=== PATIENT | male | born 1960 | race Caucasian/White ===

== ENCOUNTER 2016-08-02 13:49 | Outpatient (CLI) | payer MEDICARE, MEDICAID ==
[~2016-08-02] VITALS: Ht 170.2 cm; Wt 114.1 kg
[~2016-08-02 13:49] MED LIST: ACCUPRIL5 MG PO; ACCUPRIL5MGTAB PO; ALBUTEROL SULFAT3 M3 IH; AMOXICILLIN 50500 MG PO; AMOXICILLIN 8751 TAB PO; ASPIRIN E.C. 8181 MG PO; ATARAX 10MG10 MG/TAB PO; ATARAX 25MG25 MG/TAB PO; BACTROBAN 22GM22 GM TP; CARAFATE 1GM1 G PO; CELEXA; CELEXA 20MG20 MG/TAB PO; CELEXA40 MG PO; CEPHALEXIN500 M1; CEPHALEXIN500 M1 PO; CILOXAN 5 ML5 ML OP; CIPRO 500MG TA500 MG PO; CLEOCIN HC150 MG/CAP PO; CLEOCIN HCL300 MG PO; COGENTIN .0.5 MG/TAB PO; DAZIDOX10 MG PO; DAZIDOX20 MG PO; DEMADEX 20MG20 M1 PO; DESYREL 50MG50 MG PO; DIFLUCAN PO; DILAUDID 4MG TAB4 MG; DILAUDID 4MG TAB4 MG PO; DOXYCYCLINE 10100 MG PO; DUREZOL 5 ML5 ML; ENULOSE10 GM/15 M PO; ENULOSE10 GM/151 PO; FERROUS SU325 MG/TAB PO; GABAPENTIN; GABAPENTIN100 M1 PO; GLUCOPHAGE1000 MG PO; HUMULIN R U-500 U/ML IJ; HUMULIN R U-500 U/ML SC; HUMULIN R100 U/ML IJ; HUMULIN U; INDERAL 20MG20 MG PO; INSLANT SQ; INSULIN; JANUVIA50 MG PO; LANTUS100 U/ML; LASIX 40MG TABL40 MG PO; LASIX 80MG TABL80 MG PO; LASIX40 MG PO; LEVAQUIN 5500 MG/TA1 PO; LEVEMIR SQ; LEXAPRO 5MG5 MG PO; LIPITOR 10MG10 MG PO; LIPITOR 80MG80 MG PO; LORTAB 5/500 501 TAB PO; LORTAB 7.5/5001 TAB PO; MAXITROL OPHTH3.5 GM OP; METFORMIN HCL PO; METROGEL TP; MONODOX100 PO; MS CONTIN30 MG PO; NAVANE; NAVANE PO; NAVANE5 MG PO; NEPHROCAP PO; NEURONTIN100 MG/CAP PO; NEXIUM 40MG40 MG PO; NORCO; NORCO 325 MG-101 TAB PO; NORCO 325 MG-51 TAB PO; NORCO 325 MG-7.1 TAB PO; NORVASC 10MG10 MG PO; NOVLOG SQ; PEPCID 20MG TAB20 MG PO; PEPCID40 MG PO; PERCOCET 325 MG1 TAB PO; POLYMYXIN B/TRIMETH OS; PREDFORTE15ML OS; PREDFORTE5ML OS; PREDNISONE20 MG PO; PRINIVIL2.5 MG PO; PROAIR HFA0.09 MG/AC IH; REMERON 15M15 MG/TA1 PO; ROXICODONE30 MG PO; SEPTRA DS 8001 TAB PO; SYNTHROID0.075 MG/T PO; TRAZADONE HYDR100 MG PO; VELTASSA8.4 GM PO; VICODIN 5/5001 UDTAB PO; VITAMIN D31000 IU PO; XANAX2 MG PO; XIFAXAN550 MG PO; ZESTRIL 20MG TA20 MG PO; ZITHROMAX 250M250 MG PO; ZITHROMAX TRI-500 MG PO; [UNRECOGNIZED DRUG - OTHER] PO; [UNRECOGNIZED DRUG - REMARK]; [UNRECOGNIZED DRUG - SUPPLY]; cholestyramine PO; lantus; water pill
[2016-08-02 14:15] VITALS: BP 182/80; PULSE 69
[2016-08-02 16:22] VITALS: BP 161/58; PULSE 66; TEMP 98.1
[2016-11-22] MEDS ORDERED: DEMADEX 20MG20 M1 PO (09:11)
[2016-12-16] MEDS ORDERED: MASON NATURAL2000 IU (06:49)
[2017-03-05] MEDS ORDERED: DILAUDID 4MG TAB4 MG PO (11:39)
== END 2016-08-02 17:35 | disposition home or self-care (01) ==
LOC: COL.RAD 13:49
DX: R18.8 Other ascites (principal); N18.9 Chronic kidney disease, unspecified; Z45.2 Encounter for adjustment and management of vascular access device
CPT/HCPCS: J1644; P9047

== ENCOUNTER 2016-08-07 17:27 | Inpatient (IN) | payer MEDICARE, MEDICAID ==
[~2016-08-07] VITALS: Ht 170.2 cm; Wt 113.9 kg
[2016-08-07 18:34] LABS: ADJUSTED CALCIUM 9.3 mg/dL (8.4-10.2); ALBUMIN 3.1 gm/dL (3.5-5.0); BASO # 0.1 (0.0-0.2); BASO % 0.5 % (0.0-2.0); BILIRUBIN,TOTAL 0.6 mg/dL (0.0-1.0); CALCIUM 8.6 mg/dL (8.4-10.2); CREATININE, serum 2.87 mg/dL (0.66-1.25); EOS # 0.2 (0.0-0.7); EOS % 1.7 % (0-4.0); GRAN # 5.4 (1.4-6.5); GRAN % 55.1 % (42.2-75.2); LYMPH # 3.3 (1.2-3.4); LYMPH % 33.5 % (20.0-51.0); MEAN CELL VOLUME 92 fl (80.0-100.0); MEAN CORPUSCULAR HGB CONC 32 g/dl (33.0-37.0); MONO # 0.9 (0.1-0.6); MONO % 8.7 % (1.7-9.3); PLATELET COUNT 100 K/mm3 (130-400); POTASSIUM 3.6 mmol/L (3.4-5.0); RED BLOOD COUNT 3.55 M/mm3 (4.20-5.60); REDCELL DISTRIBUTION WIDTH-CV 13.8 % (11.5-14.5); TOTAL PROTEIN 6.5 gm/dL (6.4-8.2); WHITE BLOOD COUNT 9.8 K/mm3 (4.8-10.8)
[2016-08-07 18:38] LABS: HEMATOCRIT 32.8 % (42.0-52.0); HEMOGLOBIN 10.5 g/dl (13.5-18.0); MEAN CORPUSCULAR HEMOGLOBIN 30 pg (27.0-31.0)
[2016-08-07 19:09] LABS: C-REACTIVE PROTEIN 3.5 mg/dL (0.0-0.9)
[2016-08-07 21:27] VITALS: BP 151/45; PULSE 69; TEMP 97.9
[2016-08-07 23:40] VITALS: BP 134/51; PULSE 66; TEMP 98.1
[2016-08-08 03:48] VITALS: BP 153/59; PULSE 66; TEMP 97.9
[2016-08-08 06:51] LABS: BASO % 0.5 % (0.0-2.0); EOS # 0.1 (0.0-0.7); GRAN % 65.1 % (42.2-75.2); LYMPH # 1.5 (1.2-3.4); LYMPH % 24.2 % (20.0-51.0); MEAN CELL VOLUME 92 fl (80.0-100.0); MEAN CORPUSCULAR HGB CONC 33 g/dl (33.0-37.0); MEAN PLATELET VOLUME 12.8 fl (7.4-10.4); MONO # 0.5 (0.1-0.6); MONO % 7.9 % (1.7-9.3); PLATELET COUNT 76 K/mm3 (130-400); RED BLOOD COUNT 3.46 M/mm3 (4.20-5.60); REDCELL DISTRIBUTION WIDTH-CV 13.5 % (11.5-14.5); WHITE BLOOD COUNT 6.1 K/mm3 (4.8-10.8)
[2016-08-08 06:54] LABS: HEMATOCRIT 31.8 % (42.0-52.0); HEMOGLOBIN 10.4 g/dl (13.5-18.0); MEAN CORPUSCULAR HEMOGLOBIN 30 pg (27.0-31.0)
[2016-08-08 07:06] LABS: ADJUSTED CALCIUM 9.6 mg/dL (8.4-10.2); ALBUMIN 2.8 gm/dL (3.5-5.0); BILIRUBIN,TOTAL 0.4 mg/dL (0.0-1.0); CALCIUM 8.6 mg/dL (8.4-10.2); CREATININE, serum 3.21 mg/dL (0.66-1.25)
[2016-08-08 07:25] VITALS: BP 149/67; PULSE 63; TEMP 98.1
[2016-08-08 15:45] VITALS: BP 176/90; PULSE 108; TEMP 98.2
[2016-08-08 16:38] LABS: PERITONEAL -POLYMORPHONUCLEAR 7.2 % (0-25); PERITONEAL FLUID RBC 1000 /mm3 (0-0)
[2016-08-08 16:57] VITALS: BP 127/60; PULSE 68; TEMP 98.2
[2016-08-08 19:45] VITALS: BP 153/68; PULSE 17; TEMP 98.2
[2016-08-08 23:54] VITALS: BP 135/41; PULSE 64; TEMP 97.8
[2016-08-09 03:34] VITALS: BP 151/56; PULSE 64; TEMP 98.3
[2016-08-09 06:36] LABS: BASO % 0.7 % (0.0-2.0); EOS # 0.1 (0.0-0.7); EOS % 2.4 % (0-4.0); GRAN # 3.3 (1.4-6.5); GRAN % 60.7 % (42.2-75.2); LYMPH # 1.6 (1.2-3.4); LYMPH % 28.3 % (20.0-51.0); MEAN CELL VOLUME 95 fl (80.0-100.0); MEAN CORPUSCULAR HGB CONC 31 g/dl (33.0-37.0); MEAN PLATELET VOLUME 11.9 fl (7.4-10.4); MONO # 0.4 (0.1-0.6); MONO % 7.4 % (1.7-9.3); RED BLOOD COUNT 3.28 M/mm3 (4.20-5.60); REDCELL DISTRIBUTION WIDTH-CV 13.7 % (11.5-14.5); WHITE BLOOD COUNT 5.5 K/mm3 (4.8-10.8)
[2016-08-09 06:38] LABS: HEMATOCRIT 31.2 % (42.0-52.0); HEMOGLOBIN 9.7 g/dl (13.5-18.0); MEAN CORPUSCULAR HEMOGLOBIN 30 pg (27.0-31.0); PLATELET COUNT 68 K/mm3 (130-400)
[2016-08-09 07:31] VITALS: BP 136/65; PULSE 67; TEMP 98.1
[2016-11-22] MEDS ORDERED: DEMADEX 20MG20 M1 PO (09:11)
[2016-12-16] MEDS ORDERED: MASON NATURAL2000 IU (06:49)
[2017-03-05] MEDS ORDERED: DILAUDID 4MG TAB4 MG PO (11:39)
== END 2016-08-09 10:42 | disposition home or self-care (01) | DRG 947 ==
LOC: COL.ER 17:27 → MEDICAL 19:16
PROVIDERS: Emergency Medicine; Internal Medicine
PROC: 5A1D00Z (ICD-10-PCS; principal; 2016-08-08)
PROC: 0W9G3ZZ Drainage of Peritoneal Cavity, Percutaneous Approach (ICD-10-PCS; 2016-08-08)
DX: R18.8 Other ascites (principal); N18.6 End stage renal disease; K76.6 Portal hypertension; D63.1 Anemia in chronic kidney disease; K74.60 Unspecified cirrhosis of liver; K72.90 Hepatic failure, unspecified without coma; D69.6 Thrombocytopenia, unspecified; Z99.2 Dependence on renal dialysis
CPT/HCPCS: J0696; J1644; J7030; P9047

== ENCOUNTER 2016-08-16 06:11 | Outpatient (CLI) | payer MEDICARE, MEDICAID ==
[~2016-08-16] VITALS: Ht 170.2 cm; Wt 113.8 kg
[2016-08-16 06:51] VITALS: BP 129/66; PULSE 67
[2016-08-16 08:45] VITALS: BP 136/70; PULSE 66
[2016-11-22] MEDS ORDERED: DEMADEX 20MG20 M1 PO (09:11)
[2016-12-16] MEDS ORDERED: MASON NATURAL2000 IU (06:49)
[2017-03-05] MEDS ORDERED: DILAUDID 4MG TAB4 MG PO (11:39)
== END 2016-08-16 11:00 | disposition home or self-care (01) ==
LOC: COL.RAD 06:11
DX: R18.8 Other ascites (principal); K74.69 Other cirrhosis of liver; Z45.2 Encounter for adjustment and management of vascular access device
CPT/HCPCS: J1644; P9047

== ENCOUNTER 2016-08-23 06:39 | Outpatient (CLI) | payer MEDICARE, MEDICAID ==
[~2016-08-23] VITALS: Ht 170.2 cm; Wt 111.9 kg
[2016-08-23 07:03] VITALS: BP 135/57; PULSE 73
[2016-08-23 08:35] VITALS: BP 147/53; PULSE 62; TEMP 98.6
[2016-11-22] MEDS ORDERED: DEMADEX 20MG20 M1 PO (09:11)
[2016-12-16] MEDS ORDERED: MASON NATURAL2000 IU (06:49)
[2017-03-05] MEDS ORDERED: DILAUDID 4MG TAB4 MG PO (11:39)
== END 2016-08-23 10:52 | disposition home or self-care (01) ==
LOC: COL.RAD 06:39
DX: R18.8 Other ascites (principal); K74.60 Unspecified cirrhosis of liver; N18.9 Chronic kidney disease, unspecified
CPT/HCPCS: J1644; P9047

== ENCOUNTER 2016-08-30 13:08 | Outpatient (CLI) | payer MEDICARE, MEDICAID ==
[~2016-08-30] VITALS: Ht 170.2 cm; Wt 104.5 kg
[2016-08-30 14:00] VITALS: BP 154/60; PULSE 69
[2016-08-30 15:30] VITALS: PULSE 70
[2016-11-22] MEDS ORDERED: DEMADEX 20MG20 M1 PO (09:11)
[2016-12-16] MEDS ORDERED: MASON NATURAL2000 IU (06:49)
[2017-03-05] MEDS ORDERED: DILAUDID 4MG TAB4 MG PO (11:39)
== END 2016-08-30 17:11 | disposition home or self-care (01) ==
LOC: COL.RAD 13:08
DX: R18.8 Other ascites (principal); K74.69 Other cirrhosis of liver; N18.9 Chronic kidney disease, unspecified; Z45.2 Encounter for adjustment and management of vascular access device
CPT/HCPCS: J1644; P9047

== ENCOUNTER 2016-09-01 12:40 | Emergency (ER) | payer MEDICARE, MEDICAID ==
[~2016-09-01] VITALS: Ht 170.2 cm; Wt 109.0 kg
[2016-09-01 12:45] VITALS: BP 159/77; TEMP 98.5
[2016-09-01 13:53] VITALS: PULSE 70
[2016-11-22] MEDS ORDERED: DEMADEX 20MG20 M1 PO (09:11)
[2016-12-16] MEDS ORDERED: MASON NATURAL2000 IU (06:49)
[2017-03-05] MEDS ORDERED: DILAUDID 4MG TAB4 MG PO (11:39)
== END 2016-09-01 13:53 | disposition home or self-care (01) ==
LOC: COL.ER 12:40
DX: E11.22 Type 2 diabetes mellitus with diabetic chronic kidney disease (principal); I12.0 Hypertensive chronic kidney disease with stage 5 chronic kidney disease or end stage renal disease; N18.6 End stage renal disease; Z99.2 Dependence on renal dialysis; Z79.4 Long term (current) use of insulin; Z45.2 Encounter for adjustment and management of vascular access device

== ENCOUNTER 2016-09-13 08:47 | Outpatient (CLI) | payer MEDICARE, MEDICAID ==
[~2016-09-13] VITALS: Ht 170.2 cm; Wt 113.6 kg
[2016-09-13 09:20] VITALS: BP 152/77; PULSE 64
[2016-09-13 11:50] VITALS: BP 171/65; PULSE 62; TEMP 98.1
[2016-09-13 13:30] VITALS: BP 167/68; PULSE 72; TEMP 98.2
[2016-11-22] MEDS ORDERED: DEMADEX 20MG20 M1 PO (09:11)
[2016-12-16] MEDS ORDERED: MASON NATURAL2000 IU (06:49)
[2017-03-05] MEDS ORDERED: DILAUDID 4MG TAB4 MG PO (11:39)
== END 2016-09-13 13:40 | disposition home or self-care (01) ==
LOC: COL.RAD 08:47
PROVIDERS: Physician Assistant
DX: R18.8 Other ascites (principal); K74.60 Unspecified cirrhosis of liver; N18.9 Chronic kidney disease, unspecified; E13.22 Other specified diabetes mellitus with diabetic chronic kidney disease; Z79.4 Long term (current) use of insulin; R94.6 Abnormal results of thyroid function studies; Z45.2 Encounter for adjustment and management of vascular access device
CPT/HCPCS: J1644; P9047

== ENCOUNTER 2016-09-16 12:16 | Day surgery (SDC) | payer MEDICARE, MEDICAID ==
[2016-09-16] VITALS (8 sets, daily range): BP systolic 145–164; BP diastolic 57–88; PULSE 61–74; TEMP 98.4
[~2016-09-16] VITALS: Ht 170.2 cm; Wt 109.9 kg
[2016-09-16 12:55] LABS: HEMOGLOBIN 10.1 g/dl (13.5-18.0); MEAN CELL VOLUME 93 fl (80.0-100.0); MEAN CORPUSCULAR HEMOGLOBIN 31 pg (27.0-31.0); MEAN CORPUSCULAR HGB CONC 33 g/dl (33.0-37.0); MEAN PLATELET VOLUME 12.4 fl (7.4-10.4); PLATELET COUNT 82 K/mm3 (130-400); RED BLOOD COUNT 3.31 M/mm3 (4.20-5.60); REDCELL DISTRIBUTION WIDTH-CV 13.6 % (11.5-14.5); WHITE BLOOD COUNT 6.1 K/mm3 (4.8-10.8)
[2016-09-16 12:56] LABS: HEMATOCRIT 30.7 % (42.0-52.0)
[2016-09-16 12:59] LABS: INR 1.1 (0.8-3.0); PROTHROMBIN TIME 11.8 SECONDS (9.7-12.8)
[2016-09-16 13:06] LABS: CALCIUM 8.7 mg/dL (8.4-10.2); CREATININE, serum 3.65 mg/dL (0.66-1.25); POTASSIUM 4.7 mmol/L (3.4-5.0)
[2016-09-16] MEDS ORDERED: ASPIRIN 81M81 MG/TA2 (18:02)
[2016-11-22] MEDS ORDERED: DEMADEX 20MG20 M1 PO (09:11)
[2016-12-16] MEDS ORDERED: MASON NATURAL2000 IU (06:49)
[2017-03-05] MEDS ORDERED: DILAUDID 4MG TAB4 MG PO (11:39)
== END 2016-09-16 18:13 | disposition home or self-care (01) ==
LOC: EUO 12:16 → COL.RAD 12:30 → EUO 12:30
PROVIDERS: Internal Medicine Interventional Cardiology
DX: Z01.810 Encounter for preprocedural cardiovascular examination (principal); I50.9 Heart failure, unspecified; E11.22 Type 2 diabetes mellitus with diabetic chronic kidney disease; I12.9 Hypertensive chronic kidney disease with stage 1 through stage 4 chronic kidney disease, or unspecified chronic kidney disease; N18.9 Chronic kidney disease, unspecified; E11.42 Type 2 diabetes mellitus with diabetic polyneuropathy; I25.10 Atherosclerotic heart disease of native coronary artery without angina pectoris; Z99.2 Dependence on renal dialysis; Z79.4 Long term (current) use of insulin
CPT/HCPCS: C1760; J1644; J2250; J3010; Q9967

== ENCOUNTER 2016-09-20 08:47 | Outpatient (CLI) | payer MEDICARE, MEDICAID ==
[~2016-09-20] VITALS: Ht 170.2 cm; Wt 112.0 kg
[~2016-09-20 08:47] MED LIST changes: +ASPIRIN 81M81 MG/TA2
[2016-09-20 09:08] VITALS: BP 162/76; PULSE 64
[2016-09-20 10:32] VITALS: BP 142/57; PULSE 64; TEMP 98.1
[2016-11-22] MEDS ORDERED: DEMADEX 20MG20 M1 PO (09:11)
[2016-12-16] MEDS ORDERED: MASON NATURAL2000 IU (06:49)
[2017-03-05] MEDS ORDERED: DILAUDID 4MG TAB4 MG PO (11:39)
== END 2016-09-20 15:28 | disposition home or self-care (01) ==
LOC: COL.RAD 08:47
DX: R18.8 Other ascites (principal); K74.60 Unspecified cirrhosis of liver; Z45.2 Encounter for adjustment and management of vascular access device
CPT/HCPCS: J1644; P9047

== ENCOUNTER 2016-09-22 22:29 | Emergency (ER) | payer MEDICARE, MEDICAID ==
[~2016-09-22] VITALS: Ht 170.2 cm; Wt 113.0 kg
[2016-09-22 22:33] VITALS: TEMP 98.4
[2016-09-22 23:15] LABS: BASO % 0.7 % (0.0-2.0); EOS # 0.2 (0.0-0.7); EOS % 2.6 % (0-4.0); GRAN % 66.7 % (42.2-75.2); LYMPH # 1.3 (1.2-3.4); LYMPH % 20.9 % (20.0-51.0); MEAN CELL VOLUME 91 fl (80.0-100.0); MEAN CORPUSCULAR HGB CONC 34 g/dl (33.0-37.0); MEAN PLATELET VOLUME 12.3 fl (7.4-10.4); MONO # 0.5 (0.1-0.6); MONO % 8.6 % (1.7-9.3); PLATELET COUNT 78 K/mm3 (130-400); RED BLOOD COUNT 3.06 M/mm3 (4.20-5.60); REDCELL DISTRIBUTION WIDTH-CV 13.6 % (11.5-14.5)
[2016-09-22 23:25] LABS: HEMATOCRIT 27.9 % (42.0-52.0); HEMOGLOBIN 9.5 g/dl (13.5-18.0); MEAN CORPUSCULAR HEMOGLOBIN 31 pg (27.0-31.0)
[2016-09-22 23:28] LABS: ADJUSTED CALCIUM 9.1 mg/dL (8.4-10.2); ALANINE AMINOTRANSFERASE 29 U/L (21-72); ALKALINE PHOSPHATASE 315 U/L (50-136); ANION GAP 9 mmol/L (7-16); BILIRUBIN,TOTAL 0.5 mg/dL (0.0-1.0); BLOOD UREA NITROGEN 41 mg/dL (9-20); C-REACTIVE PROTEIN 2.5 mg/dL (0.0-0.9); CALCIUM 8.3 mg/dL (8.4-10.2); CARBON DIOXIDE 27 mmol/L (22-30); CHLORIDE 96 mmol/L (98-107); CREATININE, serum 3.73 mg/dL (0.66-1.25); GLUCOSE 392 mg/dL (74-106); POTASSIUM 3.9 mmol/L (3.4-5.0); SODIUM 132 mmol/L (137-145); TOTAL PROTEIN 6.5 gm/dL (6.4-8.2)
[2016-09-22 23:31] LABS: PARTIAL THROMBOPLASTIN TIME 37.7 SECONDS (26.0-37.0)
[2016-09-22 23:40] LABS: TROPONIN-I < 0.012 ng/mL (0.000-0.034)
[2016-09-22] MEDS ORDERED: INDERAL 20MG20 MG PO (23:41)
[2016-09-22] MEDS ORDERED: REMERON 15M15 MG/TA1 PO (23:41)
[2016-09-22] MEDS ORDERED: LEXAPRO 10MG10 MG PO (23:41)
[2016-09-22] MEDS ORDERED: NOVOLOG 100U100 U/M1 SQ (23:43)
[2016-09-22] MEDS ORDERED: XIFAXAN550 MG PO (23:44)
[2016-09-22] MEDS ORDERED: ROXICODONE30 MG PO (23:44)
[2016-09-22] MEDS ORDERED: VISTARIL 2525 MG/CAP PO (23:45)
[2016-09-22] MEDS ORDERED: DEMADEX 20MG20 M1 PO (23:45)
[2016-09-22] MEDS ORDERED: VITAMIN D 50,1.25 MG PO (23:45)
[2016-09-22] MEDS ORDERED: LEVEMIR FLEX100 U/ML SQ (23:46)
[2016-09-23 00:13] VITALS: BP 138/68; PULSE 71
[2016-11-22] MEDS ORDERED: DEMADEX 20MG20 M1 PO (09:11)
[2016-12-16] MEDS ORDERED: MASON NATURAL2000 IU (06:49)
[2017-03-05] MEDS ORDERED: DILAUDID 4MG TAB4 MG PO (11:39)
== END 2016-09-23 00:15 | disposition home or self-care (01) ==
LOC: COL.ER 22:29
PROVIDERS: Emergency Medicine
DX: E11.22 Type 2 diabetes mellitus with diabetic chronic kidney disease (principal); I12.0 Hypertensive chronic kidney disease with stage 5 chronic kidney disease or end stage renal disease; M79.602 Pain in left arm; N18.6 End stage renal disease; Z99.2 Dependence on renal dialysis; Z79.4 Long term (current) use of insulin; G93.89 Other specified disorders of brain

== ENCOUNTER 2016-09-27 11:25 | Outpatient (CLI) | payer MEDICARE, MEDICAID ==
[~2016-09-27] VITALS: Ht 170.2 cm; Wt 113.0 kg
[~2016-09-27 11:25] MED LIST changes: +LEVEMIR FLEX100 U/ML SQ; +LEXAPRO 10MG10 MG PO; +NOVOLOG 100U100 U/M1 SQ; +VISTARIL 2525 MG/CAP PO; +VITAMIN D 50,1.25 MG PO
[2016-09-27] MEDS ORDERED: DEMADEX100 MG PO (11:46)
[2016-09-27 14:05] VITALS: BP 149/56; PULSE 64; TEMP 98.1
[2016-11-22] MEDS ORDERED: DEMADEX 20MG20 M1 PO (09:11)
[2016-12-16] MEDS ORDERED: MASON NATURAL2000 IU (06:49)
[2017-03-05] MEDS ORDERED: DILAUDID 4MG TAB4 MG PO (11:39)
== END 2016-09-27 14:49 | disposition home or self-care (01) ==
LOC: COL.RAD 11:25
DX: R18.8 Other ascites (principal); K74.69 Other cirrhosis of liver; N18.9 Chronic kidney disease, unspecified; K72.90 Hepatic failure, unspecified without coma; Z45.2 Encounter for adjustment and management of vascular access device
CPT/HCPCS: J1644; P9047

== ENCOUNTER → 2016-10-07 | Outpatient (CLI) | payer MEDICARE, MEDICAID ==
[~2016-10-07] MED LIST changes: +DEMADEX100 MG PO; +MASON NATURAL2000 IU; +NULECIT62.5 MG/5 IV; +PROTEIN1 PDR PO
== END ==
LOC: COL.LAB 14:04
DX: R31.29 Other microscopic hematuria (principal)
CPT/HCPCS: G0103

== ENCOUNTER 2016-10-10 09:56 | Outpatient (CLI) | payer MEDICARE, MEDICAID ==
[~2016-10-10] VITALS: Ht 170.2 cm; Wt 113.9 kg
[~2016-10-10 09:56] MED LIST changes: -MASON NATURAL2000 IU; -NULECIT62.5 MG/5 IV; -PROTEIN1 PDR PO
[2016-10-10 10:37] VITALS: BP 123/52; PULSE 69; TEMP 97.9
[2016-10-10 13:44] VITALS: BP 133/67; PULSE 61
[2016-11-22] MEDS ORDERED: DEMADEX 20MG20 M1 PO (09:11)
[2016-12-16] MEDS ORDERED: MASON NATURAL2000 IU (06:49)
[2017-03-05] MEDS ORDERED: DILAUDID 4MG TAB4 MG PO (11:39)
== END 2016-10-10 15:47 | disposition home or self-care (01) ==
LOC: EUO 09:56
DX: T82.858A Stenosis of other vascular prosthetic devices, implants and grafts, initial encounter (principal); Y83.8 Other surgical procedures as the cause of abnormal reaction of the patient, or of later complication, without mention of misadventure at the time of the procedure; N18.6 End stage renal disease
CPT/HCPCS: Q9967

== ENCOUNTER 2016-10-11 11:12 | Outpatient (CLI) | payer MEDICARE, MEDICAID ==
[2016-10-11 11:36] VITALS: BP 168/78; PULSE 80
[2016-10-11 13:22] VITALS: BP 132/60; PULSE 66; TEMP 97.9
[2016-11-22] MEDS ORDERED: DEMADEX 20MG20 M1 PO (09:11)
[2016-12-16] MEDS ORDERED: MASON NATURAL2000 IU (06:49)
[2017-03-05] MEDS ORDERED: DILAUDID 4MG TAB4 MG PO (11:39)
== END 2016-10-11 14:09 | disposition home or self-care (01) ==
LOC: EUO 11:12 → COL.RAD 11:15 → EUO 14:09
DX: R18.8 Other ascites (principal); K74.60 Unspecified cirrhosis of liver; N18.9 Chronic kidney disease, unspecified; K72.90 Hepatic failure, unspecified without coma
CPT/HCPCS: J1644; P9047

== ENCOUNTER → 2016-10-18 | Outpatient (CLI) | payer MEDICARE, MEDICAID ==
[~2016-10-18] VITALS: Ht 170.2 cm; Wt 111.3 kg
[~2016-10-18] MED LIST changes: +MASON NATURAL2000 IU; +NULECIT62.5 MG/5 IV; +PROTEIN1 PDR PO
[2016-10-18 09:35] VITALS: BP 146/69; PULSE 66
== END ==
LOC: COL.RAD 09:00
DX: R18.8 Other ascites (principal); K74.60 Unspecified cirrhosis of liver; N18.9 Chronic kidney disease, unspecified; K72.90 Hepatic failure, unspecified without coma

== ENCOUNTER → 2016-10-25 | Outpatient (CLI) | payer MEDICARE, MEDICAID ==
[~2016-10-25] VITALS: Ht 170.2 cm; Wt 115.0 kg
[2016-10-25 09:11] VITALS: BP 155/72; PULSE 71
[2016-10-25 09:36] VITALS: BP 159/77; PULSE 77
== END ==
LOC: COL.RAD 08:52
DX: R18.8 Other ascites (principal); K74.60 Unspecified cirrhosis of liver; N18.9 Chronic kidney disease, unspecified; K72.90 Hepatic failure, unspecified without coma

== ENCOUNTER 2016-11-01 08:52 | Outpatient (CLI) | payer MEDICARE, MEDICAID ==
[~2016-11-01 08:52] MED LIST changes: -MASON NATURAL2000 IU; -NULECIT62.5 MG/5 IV; -PROTEIN1 PDR PO
[2016-11-01 09:14] VITALS: BP 144/70; PULSE 59
[2016-11-01 10:39] VITALS: BP 108/52; PULSE 64; TEMP 97.2
[2016-11-22] MEDS ORDERED: DEMADEX 20MG20 M1 PO (09:11)
[2016-12-16] MEDS ORDERED: MASON NATURAL2000 IU (06:49)
[2017-03-05] MEDS ORDERED: DILAUDID 4MG TAB4 MG PO (11:39)
== END 2016-11-01 12:34 | disposition home or self-care (01) ==
LOC: COL.RAD 08:52
DX: R18.8 Other ascites (principal); K74.60 Unspecified cirrhosis of liver; N18.9 Chronic kidney disease, unspecified; K72.90 Hepatic failure, unspecified without coma
CPT/HCPCS: P9047

== ENCOUNTER 2016-11-08 08:37 | Outpatient (CLI) | payer MEDICARE, MEDICAID ==
[~2016-11-08] VITALS: Ht 170.2 cm; Wt 118.1 kg
[2016-11-08 09:03] VITALS: BP 164/83; PULSE 62
[2016-11-08 11:25] VITALS: BP 147/41; PULSE 65; TEMP 98.1
[2016-11-22] MEDS ORDERED: DEMADEX 20MG20 M1 PO (09:11)
[2016-12-16] MEDS ORDERED: MASON NATURAL2000 IU (06:49)
[2017-03-05] MEDS ORDERED: DILAUDID 4MG TAB4 MG PO (11:39)
== END 2016-11-08 13:23 | disposition home or self-care (01) ==
LOC: COL.RAD 08:37
DX: K74.69 Other cirrhosis of liver (principal); N18.9 Chronic kidney disease, unspecified; R18.8 Other ascites; K72.90 Hepatic failure, unspecified without coma; R10.30 Lower abdominal pain, unspecified; Z87.19 Personal history of other diseases of the digestive system
CPT/HCPCS: J1644; P9047

== ENCOUNTER → 2016-11-15 | Outpatient (CLI) | payer MEDICARE, MEDICAID ==
[~2016-11-15] MED LIST changes: +MASON NATURAL2000 IU; +NULECIT62.5 MG/5 IV; +PROTEIN1 PDR PO
[2016-11-15 09:04] VITALS: BP 157/72; PULSE 68
== END ==
LOC: COL.RAD 08:44
DX: K74.69 Other cirrhosis of liver (principal); R18.8 Other ascites; N18.9 Chronic kidney disease, unspecified; K72.90 Hepatic failure, unspecified without coma

== ENCOUNTER → 2016-11-22 | Outpatient (CLI) | payer MEDICARE, MEDICAID ==
[~2016-11-22] VITALS: Ht 170.2 cm; Wt 119.7 kg
[2016-11-22 09:14] VITALS: BP 158/77; PULSE 64
== END ==
LOC: COL.RAD 08:55
DX: R18.8 Other ascites (principal); Z87.19 Personal history of other diseases of the digestive system

== ENCOUNTER 2016-11-30 07:55 | Emergency (ER) | payer MEDICARE, MEDICAID ==
[~2016-11-30] VITALS: Ht 170.2 cm; Wt 54.4 kg
[~2016-11-30 07:55] MED LIST changes: -MASON NATURAL2000 IU; -NULECIT62.5 MG/5 IV; -PROTEIN1 PDR PO
[2016-11-30 08:45] LABS: BASO % 0.6 % (0.0-2.0); EOS # 0.2 (0.0-0.7); EOS % 3.5 % (0-4.0); GRAN # 4.3 (1.4-6.5); HEMATOCRIT 31.6 % (42.0-52.0); HEMOGLOBIN 10.4 g/dl (13.5-18.0); LYMPH # 1.2 (1.2-3.4); MEAN CELL VOLUME 94 fl (80.0-100.0); MEAN CORPUSCULAR HEMOGLOBIN 31 pg (27.0-31.0); MEAN CORPUSCULAR HGB CONC 33 g/dl (33.0-37.0); MONO # 0.5 (0.1-0.6); MONO % 8.3 % (1.7-9.3); PLATELET COUNT 69 K/mm3 (130-400); RED BLOOD COUNT 3.37 M/mm3 (4.20-5.60); WHITE BLOOD COUNT 6.3 K/mm3 (4.8-10.8)
[2016-11-30 08:49] LABS: PROTHROMBIN TIME 11.1 SECONDS (9.7-12.8)
[2016-11-30 08:52] LABS: PARTIAL THROMBOPLASTIN TIME 34.2 SECONDS (26.0-37.0)
[2016-11-30 08:54] LABS: ADJUSTED CALCIUM 9.1 mg/dL (8.4-10.2); ALANINE AMINOTRANSFERASE 32 U/L (21-72); ALBUMIN 3.1 gm/dL (3.5-5.0); ALKALINE PHOSPHATASE 260 U/L (50-136); ANION GAP 12 mmol/L (7-16); BILIRUBIN,TOTAL 0.7 mg/dL (0.0-1.0); BLOOD UREA NITROGEN 42 mg/dL (9-20); CALCIUM 8.4 mg/dL (8.4-10.2); CARBON DIOXIDE 27 mmol/L (22-30); CHLORIDE 98 mmol/L (98-107); CREATININE, serum 3.83 mg/dL (0.66-1.25); GLUCOSE 179 mg/dL (74-106); LIPASE 342 U/L (23-300); POTASSIUM 4.1 mmol/L (3.4-5.0); SODIUM 137 mmol/L (137-145); TOTAL PROTEIN 6.7 gm/dL (6.4-8.2)
[2016-11-30 09:06] LABS: B-TYPE NATRIURETIC PEPTIDE 2310 pg/mL (0-125); TROPONIN-I < 0.012 ng/mL (0.000-0.034)
[2016-11-30 12:45] VITALS: BP 145/77; PULSE 63
[2016-12-16] MEDS ORDERED: MASON NATURAL2000 IU (06:49)
[2017-03-05] MEDS ORDERED: DILAUDID 4MG TAB4 MG PO (11:39)
== END 2016-11-30 13:08 | disposition home or self-care (01) ==
LOC: COL.ER 07:55
PROVIDERS: Emergency Medicine
DX: R07.9 Chest pain, unspecified (principal); E11.22 Type 2 diabetes mellitus with diabetic chronic kidney disease; I12.0 Hypertensive chronic kidney disease with stage 5 chronic kidney disease or end stage renal disease; N18.6 End stage renal disease; Z99.2 Dependence on renal dialysis; F43.10 Post-traumatic stress disorder, unspecified; F20.9 Schizophrenia, unspecified; F41.8 Other specified anxiety disorders; R18.8 Other ascites; K80.20 Calculus of gallbladder without cholecystitis without obstruction; R16.1 Splenomegaly, not elsewhere classified; K71.10 Toxic liver disease with hepatic necrosis, without coma; Z79.4 Long term (current) use of insulin

== ENCOUNTER → 2016-12-04 | Outpatient (CLI) | payer MEDICARE, MEDICAID ==
[~2016-12-04] MED LIST changes: +MASON NATURAL2000 IU; +NULECIT62.5 MG/5 IV; +PROTEIN1 PDR PO
== END ==
LOC: COL.VAS 10:38
DX: I65.23 Occlusion and stenosis of bilateral carotid arteries (principal); G81.94 Hemiplegia, unspecified affecting left nondominant side

== ENCOUNTER → 2016-12-16 | Outpatient (CLI) | payer MEDICARE, MEDICAID ==
[~2016-12-16] VITALS: Ht 170.2 cm; Wt 124.4 kg
[2016-12-16 06:50] VITALS: BP 173/76; PULSE 66
== END ==
LOC: COL.RAD 06:30
DX: R18.8 Other ascites (principal); Z53.09 Procedure and treatment not carried out because of other contraindication

== ENCOUNTER → 2017-02-11 | Outpatient (CLI) | payer MEDICARE, MEDICAID ==
[~2017-02-11] VITALS: Ht 170.2 cm; Wt 118.5 kg
[2017-02-11 11:18] VITALS: BP 125/63; PULSE 71
[2017-02-11 13:00] VITALS: BP 122/50; PULSE 63
[2017-02-11 13:05] VITALS: BP 125/55; PULSE 59
[2017-02-11 13:20] VITALS: BP 127/51; PULSE 61
[2017-02-11 13:35] VITALS: BP 144/62; PULSE 67
[2017-02-11 13:50] VITALS: BP 151/62; PULSE 65
== END ==
LOC: COL.RAD 10:52
DX: G91.2 (Idiopathic) normal pressure hydrocephalus (principal)
CPT/HCPCS: Q9965

== ENCOUNTER → 2017-02-17 | Outpatient (CLI) | payer MEDICARE, MEDICAID | LOC: WCC 10:17 | DX: E11.621 Type 2 diabetes mellitus with foot ulcer (principal); L97.529 Non-pressure chronic ulcer of other part of left foot with unspecified severity | CPT/HCPCS: 13919; 13973; 27510; A6197; A6199; G0463 ==

== ENCOUNTER 2017-02-19 09:49 | Outpatient (CLI) | payer MEDICARE, MEDICAID ==
[~2017-02-19] VITALS: Ht 170.2 cm; Wt 118.2 kg
[~2017-02-19 09:49] MED LIST changes: -NULECIT62.5 MG/5 IV; -PROTEIN1 PDR PO
[2017-02-19] MEDS ORDERED: SYNTHROID0.075 MG/T PO (11:11)
[2017-02-19] MEDS ORDERED: LIPITOR 10MG10 MG PO (11:12)
[2017-02-19] MEDS ORDERED: ATARAX 10MG10 MG/TAB PO (11:15)
[2017-02-19] MEDS ORDERED: NEPHROCAP PO (11:17)
[2017-02-19] MEDS ORDERED: DOXYCYCLINE 10100 MG PO (11:18)
[2017-02-19] MEDS ORDERED: XIFAXAN550 MG PO (11:19)
[2017-02-19] MEDS ORDERED: NULECIT62.5 MG/5 IV (11:20)
[2017-02-19] MEDS ORDERED: PROTEIN1 PDR PO (11:21)
[2017-02-19 11:22] VITALS: BP 134/56; PULSE 60; TEMP 98.1
[2017-02-19 12:16] VITALS: BP 158/76; PULSE 63
[2017-02-19 13:00] VITALS: BP 153/62; PULSE 65
[2017-02-19 14:00] VITALS: BP 136/76; PULSE 66
[2017-03-05] MEDS ORDERED: DILAUDID 4MG TAB4 MG PO (11:39)
== END 2017-02-19 14:20 | disposition home or self-care (01) ==
LOC: COL.CAR 09:49
DX: T82.898A Other specified complication of vascular prosthetic devices, implants and grafts, initial encounter (principal); N18.6 End stage renal disease; E11.9 Type 2 diabetes mellitus without complications; E78.5 Hyperlipidemia, unspecified; E66.9 Obesity, unspecified; Z79.4 Long term (current) use of insulin
CPT/HCPCS: J1644; Q9967

== ENCOUNTER → 2017-02-26 | Outpatient (CLI) | payer MEDICARE, MEDICAID ==
[~2017-02-26] MED LIST changes: +NULECIT62.5 MG/5 IV; +PROTEIN1 PDR PO
== END ==
LOC: WCC 02-24 09:58
DX: Z53.8 Procedure and treatment not carried out for other reasons (principal)

== ENCOUNTER → 2017-03-03 | Outpatient (CLI) | payer MEDICARE, MEDICAID ==
[2017-03-03 10:07] LABS: BASO # 0.1 (0.0-0.2); BASO % 0.6 % (0.0-2.0); EOS # 0.3 (0.0-0.7); EOS % 3.2 % (0-4.0); GRAN # 5.3 (1.4-6.5); GRAN % 67.8 % (42.2-75.2); HEMATOCRIT 38.2 % (42.0-52.0); HEMOGLOBIN 12.6 g/dl (13.5-18.0); LYMPH # 1.6 (1.2-3.4); MEAN CELL VOLUME 97 fl (80.0-100.0); MEAN CORPUSCULAR HEMOGLOBIN 32 pg (27.0-31.0); MEAN CORPUSCULAR HGB CONC 33 g/dl (33.0-37.0); MEAN PLATELET VOLUME 11.9 fl (7.4-10.4); MONO # 0.5 (0.1-0.6); MONO % 6.6 % (1.7-9.3); PLATELET COUNT 86 K/mm3 (130-400); RED BLOOD COUNT 3.92 M/mm3 (4.20-5.60); REDCELL DISTRIBUTION WIDTH-CV 14.6 % (11.5-14.5); WHITE BLOOD COUNT 7.8 K/mm3 (4.8-10.8)
[2017-03-03 10:27] LABS: ADJUSTED CALCIUM 8.9 mg/dL (8.4-10.2); ALBUMIN 3.7 gm/dL (3.5-5.0); BILIRUBIN,TOTAL 0.8 mg/dL (0.0-1.0); CALCIUM 8.7 mg/dL (8.4-10.2); POTASSIUM 4.4 mmol/L (3.4-5.0); TOTAL PROTEIN 7.5 gm/dL (6.4-8.2)
[2017-03-03 10:53] LABS: THYROID STIMULATING HORMONE 3.33 uIU/mL (0.465-4.680)
[2017-03-03 11:02] LABS: CREATININE, serum 6.28 mg/dL (0.66-1.25)
== END ==
LOC: COL.LAB 09:25
PROVIDERS: Family Medicine
DX: E11.22 Type 2 diabetes mellitus with diabetic chronic kidney disease (principal); N18.6 End stage renal disease; Z99.2 Dependence on renal dialysis; E66.01 Morbid (severe) obesity due to excess calories; K74.60 Unspecified cirrhosis of liver; Z79.4 Long term (current) use of insulin

== ENCOUNTER → 2017-03-05 | Outpatient (CLI) | payer MEDICARE, MEDICAID ==
[~2017-03-05] VITALS: Ht 170.2 cm; Wt 122.8 kg
[2017-03-05 11:30] VITALS: BP 145/74; PULSE 71
== END ==
LOC: COL.RAD 11:07
DX: K74.60 Unspecified cirrhosis of liver (principal); R74.8 Abnormal levels of other serum enzymes; N18.9 Chronic kidney disease, unspecified; R53.83 Other fatigue; M62.50 Muscle wasting and atrophy, not elsewhere classified, unspecified site

== ENCOUNTER → 2017-03-10 | Outpatient (CLI) | payer MEDICARE, MEDICAID | LOC: COL.RAD 03-06 13:15 | DX: S91.302A Unspecified open wound, left foot, initial encounter (principal); M62.572 Muscle wasting and atrophy, not elsewhere classified, left ankle and foot; E11.22 Type 2 diabetes mellitus with diabetic chronic kidney disease; N18.6 End stage renal disease; S91.109D Unspecified open wound of unspecified toe(s) without damage to nail, subsequent encounter; E11.621 Type 2 diabetes mellitus with foot ulcer; L97.529 Non-pressure chronic ulcer of other part of left foot with unspecified severity; Z89.432 Acquired absence of left foot; Z99.2 Dependence on renal dialysis; Z79.4 Long term (current) use of insulin ==

== ENCOUNTER 2017-03-25 10:54 | Emergency (ER) | payer MEDICARE, MEDICAID ==
[~2017-03-25] VITALS: Ht 170.2 cm; Wt 86.4 kg
[2017-03-25 10:56] VITALS: TEMP 98.6
[2017-03-25 11:52] LABS: BASO # 0.1 (0.0-0.2); BASO % 0.7 % (0.0-2.0); EOS # 0.1 (0.0-0.7); EOS % 1.4 % (0-4.0); GRAN # 5.5 (1.4-6.5); GRAN % 75.2 % (42.2-75.2); HEMOGLOBIN 12.2 g/dl (13.5-18.0); LYMPH # 1.1 (1.2-3.4); LYMPH % 15.6 % (20.0-51.0); MEAN CELL VOLUME 97 fl (80.0-100.0); MEAN CORPUSCULAR HEMOGLOBIN 33 pg (27.0-31.0); MEAN CORPUSCULAR HGB CONC 34 g/dl (33.0-37.0); MONO # 0.5 (0.1-0.6); MONO % 6.7 % (1.7-9.3); PLATELET COUNT 79 K/mm3 (130-400); RED BLOOD COUNT 3.72 M/mm3 (4.20-5.60); REDCELL DISTRIBUTION WIDTH-CV 13.9 % (11.5-14.5); WHITE BLOOD COUNT 7.3 K/mm3 (4.8-10.8)
[2017-03-25 11:53] LABS: HEMATOCRIT 36.1 % (42.0-52.0)
[2017-03-25 11:57] LABS: PROTHROMBIN TIME 11.1 SECONDS (9.7-12.8)
[2017-03-25 12:00] LABS: PARTIAL THROMBOPLASTIN TIME 30.7 SECONDS (26.0-37.0)
[2017-03-25 12:02] LABS: ADJUSTED CALCIUM 9.4 mg/dL (8.4-10.2); ALANINE AMINOTRANSFERASE 27 U/L (21-72); ALBUMIN 3.8 gm/dL (3.5-5.0); ALKALINE PHOSPHATASE 298 U/L (50-136); ANION GAP 11 mmol/L (7-16); BLOOD UREA NITROGEN 21 mg/dL (9-20); CALCIUM 9.2 mg/dL (8.4-10.2); CARBON DIOXIDE 30 mmol/L (22-30); CHLORIDE 99 mmol/L (98-107); CREATININE, serum 2.89 mg/dL (0.66-1.25); GLUCOSE 194 mg/dL (74-106); POTASSIUM 4.6 mmol/L (3.4-5.0); SODIUM 140 mmol/L (137-145); TOTAL PROTEIN 7.9 gm/dL (6.4-8.2)
[2017-03-25 12:15] LABS: TROPONIN-I < 0.012 ng/mL (0.000-0.034)
[2017-03-25 12:51] VITALS: BP 129/48; PULSE 72
== END 2017-03-25 12:51 | disposition home or self-care (01) ==
LOC: COL.ER 10:54
PROVIDERS: Family Medicine
DX: R07.9 Chest pain, unspecified (principal); I12.9 Hypertensive chronic kidney disease with stage 1 through stage 4 chronic kidney disease, or unspecified chronic kidney disease; E11.22 Type 2 diabetes mellitus with diabetic chronic kidney disease; N18.9 Chronic kidney disease, unspecified; Z99.2 Dependence on renal dialysis; Z79.4 Long term (current) use of insulin

== ENCOUNTER → 2017-04-03 | Outpatient (CLI) | payer MEDICARE, MEDICAID | LOC: COL.RAD 08:51 | DX: Z11.1 Encounter for screening for respiratory tuberculosis (principal); R07.9 Chest pain, unspecified; Z99.2 Dependence on renal dialysis ==

== ENCOUNTER → 2017-04-14 | Outpatient (CLI) | payer MEDICARE, MEDICAID | LOC: WCC 02-26 12:27 | DX: E11.621 Type 2 diabetes mellitus with foot ulcer (principal); L97.529 Non-pressure chronic ulcer of other part of left foot with unspecified severity; Z89.411 Acquired absence of right great toe | CPT/HCPCS: 13919; 27510; 27517; A6197; A6207; G0463 ==

== ENCOUNTER → 2017-04-17 | Outpatient (CLI) | payer MEDICARE, MEDICAID | LOC: WCC 14:16 | DX: L97.519 Non-pressure chronic ulcer of other part of right foot with unspecified severity (principal); E11.9 Type 2 diabetes mellitus without complications | CPT/HCPCS: 18867; 27510; 27517; A6197; A6207; A6209 ==

== ENCOUNTER 2017-06-12 14:59 | Inpatient (IN) | payer MEDICARE, MEDICAID ==
[~2017-06-12] VITALS: Ht 170.2 cm; Wt 110.9 kg
[~2017-06-12 14:59] MED LIST changes: +OXYCONTIN30 MG PO; +XANAX 1MG1 MG PO
[2017-06-12 17:53] VITALS: BP 149/47; PULSE 64; TEMP 97.8
[2017-06-12 18:25] VITALS: BP 149/47; PULSE 64; TEMP 97.8
[2017-06-12] MEDS ORDERED: MONODOX100 PO (20:42)
[2017-06-12] MEDS ORDERED: ARANESP0.06 MG/0. SQ (20:46)
[2017-06-12] MEDS ORDERED: NOVOLOG 100U100 U/M1 SQ (20:50)
[2017-06-12] MEDS ORDERED: COLACE 100100 MG/CAP PO (20:52)
[2017-06-12] MEDS ORDERED: TYLENOL 325MG325 MG PO (20:56)
[2017-06-12] MEDS ORDERED: NORCO 325 MG-7.1 TAB PO (20:57)
[2017-06-12] MEDS ORDERED: BENADRYL25 M2 PO (20:59)
[2017-06-12] MEDS ORDERED: BENADRYL 50M50 MG/ML IV (20:59)
[2017-06-13 03:25] VITALS: BP 144/46; PULSE 63; TEMP 99.1
[2017-06-13 09:07] LABS: BASO % 0.5 % (0.0-2.0); EOS # 0.1 (0.0-0.7); EOS % 2.3 % (0-4.0); GRAN % 66.4 % (42.2-75.2); LYMPH # 1.3 (1.2-3.4); LYMPH % 21.4 % (20.0-51.0); MEAN CELL VOLUME 98 fl (80.0-100.0); MEAN CORPUSCULAR HGB CONC 32 g/dl (33.0-37.0); MEAN PLATELET VOLUME 13.8 fl (7.4-10.4); MONO # 0.5 (0.1-0.6); MONO % 8.4 % (1.7-9.3); RED BLOOD COUNT 3.16 M/mm3 (4.20-5.60)
[2017-06-13 09:22] LABS: CALCIUM 8.7 mg/dL (8.4-10.2); POTASSIUM 4.8 mmol/L (3.4-5.0)
[2017-06-13 09:26] LABS: HEMATOCRIT 30.8 % (42.0-52.0); HEMOGLOBIN 9.7 g/dl (13.5-18.0); MEAN CORPUSCULAR HEMOGLOBIN 31 pg (27.0-31.0)
[2017-06-13 09:27] LABS: PLATELET COUNT 44 K/mm3 (130-400)
[2017-06-13 09:29] LABS: CREATININE, serum 6.47 mg/dL (0.66-1.25)
[2017-06-13 15:30] VITALS: BP 127/86; PULSE 66; TEMP 97.8
[2017-06-14 05:39] VITALS: BP 150/47; PULSE 61; TEMP 98.4
[2017-06-14 17:02] VITALS: BP 158/50; PULSE 63; TEMP 98.3
[2017-06-15 06:30] VITALS: BP 136/54; PULSE 62; TEMP 98.2
[2017-06-15 18:24] VITALS: BP 139/55; PULSE 62; TEMP 97.7
[2017-06-16 06:17] VITALS: BP 152/49; PULSE 65; TEMP 98
[2017-06-16 07:10] LABS: BASO % 0.5 % (0.0-2.0); EOS # 0.2 (0.0-0.7); EOS % 3.1 % (0-4.0); GRAN # 4.8 (1.4-6.5); GRAN % 74.7 % (42.2-75.2); LYMPH # 0.9 (1.2-3.4); LYMPH % 14.6 % (20.0-51.0); MEAN CELL VOLUME 97 fl (80.0-100.0); MEAN CORPUSCULAR HGB CONC 31 g/dl (33.0-37.0); MEAN PLATELET VOLUME 13.4 fl (7.4-10.4); MONO # 0.4 (0.1-0.6); MONO % 5.7 % (1.7-9.3); PLATELET COUNT 54 K/mm3 (130-400); RED BLOOD COUNT 2.96 M/mm3 (4.20-5.60); WHITE BLOOD COUNT 6.4 K/mm3 (4.8-10.8)
[2017-06-16 07:14] LABS: HEMATOCRIT 28.7 % (42.0-52.0); HEMOGLOBIN 8.9 g/dl (13.5-18.0); MEAN CORPUSCULAR HEMOGLOBIN 30 pg (27.0-31.0)
[2017-06-16 07:20] LABS: CALCIUM 8.6 mg/dL (8.4-10.2); POTASSIUM 4.7 mmol/L (3.4-5.0)
[2017-06-16 07:30] LABS: CREATININE, serum 7.97 mg/dL (0.66-1.25)
[2017-06-16 16:28] VITALS: BP 116/52; PULSE 65; TEMP 97.6
[2017-06-17 06:11] VITALS: BP 149/48; PULSE 66; TEMP 98.2
[2017-06-17 16:36] VITALS: BP 152/60; PULSE 64; TEMP 98.4
[2017-06-18 05:27] VITALS: BP 164/52; PULSE 62; TEMP 98.7
[2017-06-18 07:06] LABS: CALCIUM 8.6 mg/dL (8.4-10.2); POTASSIUM 4.4 mmol/L (3.4-5.0)
[2017-06-18 07:13] LABS: CREATININE, serum 7.56 mg/dL (0.66-1.25)
[2017-06-18 07:14] LABS: MEAN CELL VOLUME 97 fl (80.0-100.0); MEAN CORPUSCULAR HGB CONC 32 g/dl (33.0-37.0); PLATELET COUNT 89 K/mm3 (130-400); WHITE BLOOD COUNT 8.8 K/mm3 (4.8-10.8)
[2017-06-18 07:17] LABS: ADD PATHOLOGY DIFF REVIEW NO; HEMATOCRIT 29.9 % (42.0-52.0); HEMOGLOBIN 9.5 g/dl (13.5-18.0); MEAN CORPUSCULAR HEMOGLOBIN 31 pg (27.0-31.0)
[2017-06-18 08:01] LABS: BAND 5 % (0-10); EOSINOPHIL 2 % (0-4); LYMPHOCYTE 21 % (20.0-51.0); NEUTROPHILS 70 % (42.0-75.2); PLATELET ESTIMATE DECREASED (NORMAL); TOTAL CELLS COUNTED 100
[2017-06-18 16:05] VITALS: BP 146/44; PULSE 65; TEMP 98.6
[2017-06-19 04:07] VITALS: BP 151/53; PULSE 68; TEMP 98.8
[2017-06-19 17:26] VITALS: BP 142/51; PULSE 66; TEMP 98.2
[2017-06-20 04:37] VITALS: BP 170/59; PULSE 64; TEMP 97.3
[2017-06-20 06:58] LABS: BASO # 0.1 (0.0-0.2); BASO % 0.6 % (0.0-2.0); EOS # 0.3 (0.0-0.7); EOS % 2.9 % (0-4.0); GRAN # 5.5 (1.4-6.5); GRAN % 61.9 % (42.2-75.2); LYMPH # 2.2 (1.2-3.4); LYMPH % 24.6 % (20.0-51.0); MEAN CELL VOLUME 97 fl (80.0-100.0); MEAN CORPUSCULAR HGB CONC 32 g/dl (33.0-37.0); MEAN PLATELET VOLUME 13.1 fl (7.4-10.4); MONO # 0.8 (0.1-0.6); MONO % 9.1 % (1.7-9.3); PLATELET COUNT 100 K/mm3 (130-400); RED BLOOD COUNT 3.36 M/mm3 (4.20-5.60); WHITE BLOOD COUNT 8.9 K/mm3 (4.8-10.8)
[2017-06-20 07:06] LABS: HEMATOCRIT 32.6 % (42.0-52.0); HEMOGLOBIN 10.3 g/dl (13.5-18.0); MEAN CORPUSCULAR HEMOGLOBIN 31 pg (27.0-31.0)
[2017-06-20 07:11] LABS: CALCIUM 8.7 mg/dL (8.4-10.2); POTASSIUM 4.5 mmol/L (3.4-5.0)
[2017-06-20 07:26] LABS: CREATININE, serum 7.23 mg/dL (0.66-1.25)
[2017-06-20 17:14] VITALS: BP 130/45; PULSE 65; TEMP 97.7
[2017-06-21 05:31] VITALS: BP 149/59; PULSE 65; TEMP 97.3
[2017-06-21 07:15] LABS: CALCIUM 8.3 mg/dL (8.4-10.2); POTASSIUM 4.7 mmol/L (3.4-5.0)
[2017-06-21 07:18] LABS: CREATININE, serum 8.64 mg/dL (0.66-1.25)
[2017-06-21 15:59] VITALS: BP 118/36; PULSE 67; TEMP 97.4
[2017-06-22 03:40] VITALS: BP 120/37; PULSE 60; TEMP 97.8
[2017-06-22 15:25] VITALS: BP 124/53; PULSE 63; TEMP 97.8
[2017-06-23 05:15] VITALS: BP 141/78; PULSE 62; TEMP 98.4
[2017-06-23 17:30] VITALS: BP 153/44; PULSE 66; TEMP 98.2
[2017-06-24 05:48] VITALS: BP 142/56; PULSE 65; TEMP 97.8
[2017-06-24 07:43] LABS: MEAN CELL VOLUME 96 fl (80.0-100.0); MEAN CORPUSCULAR HGB CONC 32 g/dl (33.0-37.0); MEAN PLATELET VOLUME 13.2 fl (7.4-10.4); PLATELET COUNT 88 K/mm3 (130-400); RED BLOOD COUNT 3.03 M/mm3 (4.20-5.60); WHITE BLOOD COUNT 7.5 K/mm3 (4.8-10.8)
[2017-06-24 07:52] LABS: CALCIUM 8.4 mg/dL (8.4-10.2); POTASSIUM 4.5 mmol/L (3.4-5.0)
[2017-06-24 07:54] LABS: HEMATOCRIT 29.2 % (42.0-52.0); HEMOGLOBIN 9.4 g/dl (13.5-18.0); MEAN CORPUSCULAR HEMOGLOBIN 31 pg (27.0-31.0)
[2017-06-24 07:55] LABS: CREATININE, serum 8.61 mg/dL (0.66-1.25)
[2017-06-24 18:06] VITALS: BP 122/42; PULSE 66; TEMP 98.8
[2017-06-25 05:43] VITALS: BP 152/57; PULSE 66; TEMP 98.4
[2017-06-25 17:35] VITALS: BP 135/57; PULSE 65; TEMP 97.8
[2017-06-26 06:19] VITALS: BP 151/55; PULSE 69; TEMP 98
[2017-06-26 06:48] LABS: MEAN CELL VOLUME 99 fl (80.0-100.0); MEAN CORPUSCULAR HGB CONC 31 g/dl (33.0-37.0); PLATELET COUNT 67 K/mm3 (130-400); RED BLOOD COUNT 2.79 M/mm3 (4.20-5.60); WHITE BLOOD COUNT 5.9 K/mm3 (4.8-10.8)
[2017-06-26 06:49] LABS: HEMATOCRIT 27.7 % (42.0-52.0); HEMOGLOBIN 8.5 g/dl (13.5-18.0); MEAN CORPUSCULAR HEMOGLOBIN 30 pg (27.0-31.0)
[2017-06-26 07:05] LABS: CALCIUM 8.6 mg/dL (8.4-10.2); POTASSIUM 4.6 mmol/L (3.4-5.0)
[2017-06-26 07:14] LABS: CREATININE, serum 7.52 mg/dL (0.66-1.25)
[2017-06-26 16:10] VITALS: BP 150/56; PULSE 66; TEMP 98.2
[2017-06-27 04:05] VITALS: BP 150/50; PULSE 39; TEMP 97.5
[2017-06-27] MEDS ORDERED: IMODIUM 2MG CAPS2 MG PO (08:42)
[2017-06-27] MEDS ORDERED: NORCO 325 MG-7.1 TAB PO (08:45)
[2017-06-27] MEDS ORDERED: ZOFRAN ODT4 MG PO (08:45)
[2017-06-28] MEDS ORDERED: ROXICODONE30 MG PO (19:57)
[2017-06-28] MEDS ORDERED: DILAUDID 4MG TAB4 MG PO (19:58)
== END 2017-06-27 12:40 | disposition home health service (06) | DRG 559 ==
PROVIDERS: Internal Medicine
PROC: 5A1D70Z Performance of Urinary Filtration, Intermittent, Less than 6 Hours Per Day (ICD-10-PCS; principal; 2017-06-14)
DX: Z47.81 Encounter for orthopedic aftercare following surgical amputation (principal); N18.6 End stage renal disease; E11.52 Type 2 diabetes mellitus with diabetic peripheral angiopathy with gangrene; I12.0 Hypertensive chronic kidney disease with stage 5 chronic kidney disease or end stage renal disease; E11.22 Type 2 diabetes mellitus with diabetic chronic kidney disease; Z99.2 Dependence on renal dialysis; E11.42 Type 2 diabetes mellitus with diabetic polyneuropathy; K72.10 Chronic hepatic failure without coma; E66.01 Morbid (severe) obesity due to excess calories; Z68.38 Body mass index [BMI] 38.0-38.9, adult; D63.1 Anemia in chronic kidney disease
CPT/HCPCS: 99222-AI; 99232-AI; 99233-AI; 99239; J0881; J1644; J1815; J2916

== ENCOUNTER → 2017-07-04 | Outpatient (CLI) | payer MEDICARE, MEDICAID ==
[~2017-07-04] MED LIST changes: +ARANESP0.06 MG/0. SQ; +BENADRYL 50M50 MG/ML IV; +BENADRYL25 M2 PO; +COLACE 100100 MG/CAP PO; +IMODIUM 2MG CAPS2 MG PO; +TYLENOL 325MG325 MG PO; +ZOFRAN ODT4 MG PO
== END ==
LOC: ZCOL.LAB 16:30
DX: Z47.81 Encounter for orthopedic aftercare following surgical amputation (principal); S91.302D Unspecified open wound, left foot, subsequent encounter; Z89.432 Acquired absence of left foot

== ENCOUNTER → 2017-07-16 | Outpatient (CLI) | payer MEDICARE, MEDICAID ==
[~2017-07-16] VITALS: Ht 170.2 cm; Wt 108.0 kg
[2017-07-16 12:21] VITALS: BP 170/74; PULSE 70
[2017-07-16 12:38] LABS: BASO # 0.1 (0.0-0.2); BASO % 0.7 % (0.0-2.0); EOS # 0.2 (0.0-0.7); GRAN # 5.2 (1.4-6.5); GRAN % 71.9 % (42.2-75.2); LYMPH # 1.2 (1.2-3.4); LYMPH % 16.5 % (20.0-51.0); MEAN CELL VOLUME 100 fl (80.0-100.0); MEAN CORPUSCULAR HGB CONC 31 g/dl (33.0-37.0); MONO # 0.5 (0.1-0.6); MONO % 7.5 % (1.7-9.3); PLATELET COUNT 108 K/mm3 (130-400); WHITE BLOOD COUNT 7.2 K/mm3 (4.8-10.8)
[2017-07-16 12:40] LABS: HEMATOCRIT 32.1 % (42.0-52.0); MEAN CORPUSCULAR HEMOGLOBIN 31 pg (27.0-31.0)
[2017-07-16 12:47] LABS: ADJUSTED CALCIUM 9.3 mg/dL (8.4-10.2); ALBUMIN 3.5 gm/dL (3.5-5.0); BILIRUBIN,TOTAL 0.7 mg/dL (0.0-1.0); CALCIUM 8.9 mg/dL (8.4-10.2); POTASSIUM 3.5 mmol/L (3.4-5.0); TOTAL PROTEIN 7.4 gm/dL (6.4-8.2)
[2017-07-16 13:04] LABS: CREATININE, serum 4.67 mg/dL (0.66-1.25)
== END ==
LOC: COL.RAD 11:48
PROVIDERS: Physician Assistant
DX: K74.60 Unspecified cirrhosis of liver (principal); K72.90 Hepatic failure, unspecified without coma; E11.22 Type 2 diabetes mellitus with diabetic chronic kidney disease; N18.9 Chronic kidney disease, unspecified

== ENCOUNTER → 2017-08-05 | Outpatient (CLI) | payer MEDICARE, MEDICAID | LOC: COL.LAB 11:09 | DX: R19.7 Diarrhea, unspecified (principal); R11.0 Nausea; R11.10 Vomiting, unspecified; Z88.8 Allergy status to other drugs, medicaments and biological substances ==

== ENCOUNTER → 2017-08-15 | Outpatient (CLI) | payer MEDICARE, MEDICAID | LOC: COL.RAD 08:07 | DX: K31.84 Gastroparesis (principal); N18.9 Chronic kidney disease, unspecified; K74.60 Unspecified cirrhosis of liver | CPT/HCPCS: A9541 ==

== ENCOUNTER → 2017-08-20 | Outpatient (CLI) | payer MEDICARE, MEDICAID ==
[2017-08-20 12:00] LABS: HEMATOCRIT 39.1 % (42.0-52.0); HEMOGLOBIN 12.1 g/dl (13.5-18.0); MEAN CELL VOLUME 100 fl (80.0-100.0); MEAN CORPUSCULAR HEMOGLOBIN 31 pg (27.0-31.0); MEAN CORPUSCULAR HGB CONC 31 g/dl (33.0-37.0); MEAN PLATELET VOLUME 12.3 fl (7.4-10.4); PLATELET COUNT 67 K/mm3 (130-400); RED BLOOD COUNT 3.91 M/mm3 (4.20-5.60); REDCELL DISTRIBUTION WIDTH-CV 14.4 % (11.5-14.5)
[2017-08-20 12:10] LABS: CALCIUM 8.7 mg/dL (8.4-10.2); POTASSIUM 5.1 mmol/L (3.4-5.0)
[2017-08-20 12:13] LABS: CREATININE, serum 5.31 mg/dL (0.66-1.25)
== END ==
LOC: COL.LAB 11:37
PROVIDERS: Internal Medicine Interventional Cardiology
DX: I70.213 Atherosclerosis of native arteries of extremities with intermittent claudication, bilateral legs (principal)

== ENCOUNTER → 2017-09-22 | Outpatient (CLI) | payer MEDICARE, MEDICAID ==
[~2017-09-22] VITALS: Ht 170.2 cm; Wt 109.9 kg
[2017-09-22 14:44] VITALS: BP 180/81; PULSE 75
== END ==
LOC: COL.RAD 14:15
DX: R18.8 Other ascites (principal); R10.9 Unspecified abdominal pain; K74.60 Unspecified cirrhosis of liver

== ENCOUNTER 2017-10-19 16:47 | Emergency (ER) | payer MEDICARE, MEDICAID ==
[~2017-10-19] VITALS: Ht 170.2 cm; Wt 109.0 kg
[2017-10-19 16:55] VITALS: TEMP 98.1
[2017-10-19 17:54] LABS: BASO % 0.6 % (0.0-2.0); EOS # 0.1 (0.0-0.7); EOS % 2.1 % (0-4.0); GRAN # 4.6 (1.4-6.5); GRAN % 68.5 % (42.2-75.2); LYMPH # 1.5 (1.2-3.4); MEAN CELL VOLUME 96 fl (80.0-100.0); MEAN CORPUSCULAR HGB CONC 32 g/dl (33.0-37.0); MEAN PLATELET VOLUME 11.7 fl (7.4-10.4); MONO # 0.4 (0.1-0.6); MONO % 6.5 % (1.7-9.3); PLATELET COUNT 81 K/mm3 (130-400); RED BLOOD COUNT 3.81 M/mm3 (4.20-5.60); REDCELL DISTRIBUTION WIDTH-CV 14.2 % (11.5-14.5)
[2017-10-19 17:57] LABS: HEMATOCRIT 36.7 % (42.0-52.0); HEMOGLOBIN 11.7 g/dl (13.5-18.0); MEAN CORPUSCULAR HEMOGLOBIN 31 pg (27.0-31.0)
[2017-10-19 18:02] LABS: PARTIAL THROMBOPLASTIN TIME 37.1 SECONDS (26.0-37.0)
[2017-10-19 18:04] LABS: ALBUMIN 3.5 gm/dL (3.5-5.0); BILIRUBIN,TOTAL 0.7 mg/dL (0.0-1.0); CALCIUM 8.9 mg/dL (8.4-10.2); PHOSPHOROUS 5.6 mg/dL (2.5-4.5); POTASSIUM 4.7 mmol/L (3.4-5.0); TOTAL PROTEIN 7.7 gm/dL (6.4-8.2)
[2017-10-19 18:09] LABS: CREATININE, serum 5.08 mg/dL (0.66-1.25)
[2017-10-19 20:51] VITALS: BP 150/73; PULSE 69
== END 2017-10-19 20:45 | disposition home or self-care (01) ==
LOC: COL.ER 16:47
PROVIDERS: Emergency Medicine
DX: H11.31 Conjunctival hemorrhage, right eye (principal); E11.22 Type 2 diabetes mellitus with diabetic chronic kidney disease; N18.6 End stage renal disease; Z89.511 Acquired absence of right leg below knee; Z99.2 Dependence on renal dialysis; Z79.4 Long term (current) use of insulin
CPT/HCPCS: J1644

== ENCOUNTER → 2017-11-14 | Outpatient (CLI) | payer MEDICARE ==
[~2017-11-14] VITALS: Ht 170.2 cm; Wt 110.9 kg
[2017-11-14 09:06] VITALS: BP 147/75; PULSE 68
== END ==
LOC: COL.RAD 08:48
DX: K74.60 Unspecified cirrhosis of liver (principal); R18.8 Other ascites

== ENCOUNTER → 2017-12-03 | Outpatient (CLI) | payer MEDICARE, MEDICAID | LOC: COL.RAD 10:30 | DX: N50.89 Other specified disorders of the male genital organs (principal) ==

== ENCOUNTER 2018-02-23 14:03 | Outpatient (CLI) | payer MEDICARE, MEDICAID ==
[~2018-02-23] VITALS: Ht 170.2 cm; Wt 111.0 kg
[2018-02-23 14:33] VITALS: BP 128/89; PULSE 75
[2018-02-23 16:10] VITALS: BP 170/58; PULSE 73; TEMP 98
== END 2018-02-23 17:33 | disposition home or self-care (01) ==
LOC: COL.RAD 14:03
DX: R18.8 Other ascites (principal); K74.60 Unspecified cirrhosis of liver; N18.9 Chronic kidney disease, unspecified; R74.8 Abnormal levels of other serum enzymes; R53.83 Other fatigue; Z45.2 Encounter for adjustment and management of vascular access device
CPT/HCPCS: J1644; P9047

== ENCOUNTER 2018-03-18 12:29 | Emergency (ER) | payer MEDICARE, MEDICAID ==
[~2018-03-18] VITALS: Ht 170.2 cm; Wt 104.5 kg
[2018-03-18 12:36] VITALS: TEMP 98
[2018-03-18 13:40] LABS: BASO % 0.5 % (0.0-2.0); EOS # 0.2 (0.0-0.7); GRAN # 5.7 (1.4-6.5); GRAN % 75.3 % (42.2-75.2); HEMOGLOBIN 12.1 g/dl (13.5-18.0); LYMPH # 1.1 (1.2-3.4); LYMPH % 14.7 % (20.0-51.0); MEAN CELL VOLUME 94 fl (80.0-100.0); MEAN CORPUSCULAR HEMOGLOBIN 31 pg (27.0-31.0); MEAN CORPUSCULAR HGB CONC 33 g/dl (33.0-37.0); MEAN PLATELET VOLUME 12.4 fl (7.4-10.4); MONO # 0.5 (0.1-0.6); MONO % 7.1 % (1.7-9.3); PLATELET COUNT 93 K/mm3 (130-400); RED BLOOD COUNT 3.86 M/mm3 (4.20-5.60); REDCELL DISTRIBUTION WIDTH-CV 13.4 % (11.5-14.5)
[2018-03-18 13:44] LABS: HEMATOCRIT 36.4 % (42.0-52.0)
[2018-03-18 13:53] LABS: COLLECTION METHOD CLEAN CATCH
[2018-03-18 13:54] LABS: ALANINE AMINOTRANSFERASE 28 U/L (21-72); ALBUMIN 3.3 gm/dL (3.5-5.0); ALKALINE PHOSPHATASE 267 U/L (50-136); ANION GAP 16 mmol/L (7-16); AST,SGOT 36 U/L (15-37); BILIRUBIN,TOTAL 0.9 mg/dL (0.0-1.0); BLOOD UREA NITROGEN 58 mg/dL (9-20); C-REACTIVE PROTEIN 5.3 mg/dL (0.0-0.9); CALCIUM 8.2 mg/dL (8.4-10.2); CARBON DIOXIDE 20 mmol/L (22-30); CHLORIDE 97 mmol/L (98-107); GLUCOSE 264 mg/dL (74-106); LIPASE 183 U/L (23-300); PHOSPHOROUS 7.7 mg/dL (2.5-4.5); POTASSIUM 4.3 mmol/L (3.4-5.0); SODIUM 133 mmol/L (137-145); TOTAL PROTEIN 7.1 gm/dL (6.4-8.2)
[2018-03-18 14:00] LABS: CREATININE, serum 7.48 mg/dL (0.66-1.25)
[2018-03-18 14:04] LABS: TROPONIN-I < 0.012 ng/mL (0.000-0.034)
[2018-03-18 14:05] LABS: AMORPHOUS CRYSTAL Present /uL; PH 5 (5-8); SQUAMOUS EPITHELIAL 0-2 /hpf; URINE APPEARANCE Hazy; URINE BACTERIA Rare /hpf; URINE BILIRUBIN Negative (NEGATIVE); URINE BLOOD 1+ (NEGATIVE); URINE COLOR Yellow; URINE GLUCOSE 3+ (NEGATIVE); URINE KETONE Negative (NEGATIVE); URINE LEUKOCYTE ESTERASE Negative (NEGATIVE); URINE NITRATE Negative (NEGATIVE); URINE PROTEIN(semi-quant) 3+ (NEGATIVE); URINE RBC 0-2 /hpf; URINE UROBILINOGEN Negative (NEGATIVE)
[2018-03-18 16:15] LABS: PERITONEAL -POLYMORPHONUCLEAR 32.7 % (0-25); PERITONEAL FLUID RBC 1000 /mm3 (0-0)
[2018-03-18 16:50] VITALS: BP 151/72; PULSE 71
== END 2018-03-18 16:52 | disposition home or self-care (01) ==
LOC: COL.ER 12:29
PROVIDERS: Emergency Medicine
DX: R11.2 Nausea with vomiting, unspecified (principal); R19.7 Diarrhea, unspecified; R10.84 Generalized abdominal pain; I12.0 Hypertensive chronic kidney disease with stage 5 chronic kidney disease or end stage renal disease; E11.22 Type 2 diabetes mellitus with diabetic chronic kidney disease; N18.6 End stage renal disease; Z79.4 Long term (current) use of insulin; Z99.2 Dependence on renal dialysis
CPT/HCPCS: J0780

== ENCOUNTER → 2018-06-05 | Outpatient (CLI) | payer MEDICARE, MEDICAID ==
[~2018-06-05] VITALS: Ht 170.2 cm; Wt 115.0 kg
[2018-06-05 13:17] VITALS: BP 160/86; PULSE 87
[2018-06-05 14:45] VITALS: BP 177/75; PULSE 90
== END ==
LOC: COL.RAD 11:53
DX: N18.9 Chronic kidney disease, unspecified (principal); K74.60 Unspecified cirrhosis of liver

== ENCOUNTER 2018-06-13 13:11 | Emergency (ER) | payer MEDICARE, MEDICAID ==
[~2018-06-13] VITALS: Ht 170.2 cm; Wt 114.0 kg
[2018-06-13 13:16] VITALS: BP 149/67; PULSE 80; TEMP 97.9
== END 2018-06-13 15:08 | disposition home or self-care (01) ==
LOC: COL.ER 13:11
DX: E11.22 Type 2 diabetes mellitus with diabetic chronic kidney disease (principal); I12.0 Hypertensive chronic kidney disease with stage 5 chronic kidney disease or end stage renal disease; N18.6 End stage renal disease; F32.9 Major depressive disorder, single episode, unspecified; Z99.2 Dependence on renal dialysis; Z91.19 Patient's noncompliance with other medical treatment and regimen; Z79.4 Long term (current) use of insulin

== ENCOUNTER 2018-06-25 12:47 | Inpatient (IN) | payer MEDICARE, MEDICAID ==
[~2018-06-25] VITALS: Ht 170.2 cm; Wt 108.4 kg
[2018-06-25 13:42] LABS: BASO % 0.4 % (0.0-2.0); EOS % 0.2 % (0-4.0); GRAN # 7.8 (1.4-6.5); GRAN % 87.1 % (42.2-75.2); HEMATOCRIT 36.9 % (42.0-52.0); HEMOGLOBIN 12.1 g/dl (13.5-18.0); LYMPH # 0.7 (1.2-3.4); LYMPH % 7.6 % (20.0-51.0); MEAN CELL VOLUME 92 fl (80.0-100.0); MEAN CORPUSCULAR HEMOGLOBIN 30 pg (27.0-31.0); MEAN CORPUSCULAR HGB CONC 33 g/dl (33.0-37.0); MEAN PLATELET VOLUME 12.1 fl (7.4-10.4); MONO # 0.4 (0.1-0.6); MONO % 4.3 % (1.7-9.3); PLATELET COUNT 99 K/mm3 (130-400); REDCELL DISTRIBUTION WIDTH-CV 13.9 % (11.5-14.5)
[2018-06-25 13:52] LABS: ALBUMIN 3.3 gm/dL (3.5-5.0); BILIRUBIN,TOTAL 0.9 mg/dL (0.0-1.0); CALCIUM 8.3 mg/dL (8.4-10.2); POTASSIUM 4.5 mmol/L (3.4-5.0)
[2018-06-25 14:01] LABS: CREATININE, serum 9.66 mg/dL (0.66-1.25)
[2018-06-25] MEDS ORDERED: REXULTI2 MG PO (17:00)
[2018-06-25 17:56] VITALS: PULSE 89; TEMP 97.9
[2018-06-25 20:37] VITALS: BP 147/55; PULSE 85; TEMP 98
[2018-06-26 00:21] VITALS: BP 133/51; PULSE 92
[2018-06-26 03:46] VITALS: BP 144/67; PULSE 84
[2018-06-26 07:11] LABS: BASO # 0.1 (0.0-0.2); BASO % 0.6 % (0.0-2.0); CALCIUM 8.2 mg/dL (8.4-10.2); EOS # 0.1 (0.0-0.7); EOS % 0.6 % (0-4.0); GRAN # 6.7 (1.4-6.5); GRAN % 78.9 % (42.2-75.2); HEMOGLOBIN 11.4 g/dl (13.5-18.0); LYMPH # 1.1 (1.2-3.4); LYMPH % 12.5 % (20.0-51.0); MEAN CELL VOLUME 94 fl (80.0-100.0); MEAN CORPUSCULAR HEMOGLOBIN 30 pg (27.0-31.0); MEAN CORPUSCULAR HGB CONC 32 g/dl (33.0-37.0); MEAN PLATELET VOLUME 11.8 fl (7.4-10.4); MONO # 0.6 (0.1-0.6); PLATELET COUNT 100 K/mm3 (130-400); POTASSIUM 4.3 mmol/L (3.4-5.0); RED BLOOD COUNT 3.77 M/mm3 (4.20-5.60); REDCELL DISTRIBUTION WIDTH-CV 14.2 % (11.5-14.5)
[2018-06-26 07:12] LABS: HEMATOCRIT 35.4 % (42.0-52.0)
[2018-06-26 07:21] LABS: CREATININE, serum 7.66 mg/dL (0.66-1.25)
[2018-06-26 11:58] VITALS: BP 117/51; PULSE 83; TEMP 97.6
[2018-06-26 16:34] VITALS: BP 119/53; PULSE 78; TEMP 98.1
[2018-06-26 18:56] VITALS: BP 139/61; PULSE 82; TEMP 97.8
[2018-06-27 00:01] VITALS: BP 122/39; PULSE 79; TEMP 98.9
[2018-06-27 04:16] VITALS: BP 128/41; PULSE 80; TEMP 98.5
[2018-06-27 06:07] LABS: BASO % 0.3 % (0.0-2.0); EOS # 0.1 (0.0-0.7); EOS % 0.9 % (0-4.0); GRAN # 5.3 (1.4-6.5); GRAN % 75.8 % (42.2-75.2); HEMOGLOBIN 10.5 g/dl (13.5-18.0); LYMPH # 1.1 (1.2-3.4); LYMPH % 15.4 % (20.0-51.0); MEAN CELL VOLUME 96 fl (80.0-100.0); MEAN CORPUSCULAR HEMOGLOBIN 30 pg (27.0-31.0); MEAN CORPUSCULAR HGB CONC 32 g/dl (33.0-37.0); MEAN PLATELET VOLUME 11.4 fl (7.4-10.4); MONO # 0.5 (0.1-0.6); MONO % 7.5 % (1.7-9.3); PLATELET COUNT 79 K/mm3 (130-400); RED BLOOD COUNT 3.45 M/mm3 (4.20-5.60); REDCELL DISTRIBUTION WIDTH-CV 14.2 % (11.5-14.5)
[2018-06-27 06:08] LABS: HEMATOCRIT 33.1 % (42.0-52.0)
[2018-06-27 06:22] LABS: CALCIUM 7.9 mg/dL (8.4-10.2); POTASSIUM 4.1 mmol/L (3.4-5.0)
[2018-06-27 06:23] LABS: CREATININE, serum 6.3 mg/dL (0.66-1.25)
[2018-06-27 07:32] VITALS: BP 145/60; PULSE 73; TEMP 98.5
[2018-06-27 11:25] VITALS: BP 125/33; PULSE 81; TEMP 98.3
[2018-06-27] MEDS ORDERED: PROMETHAZINE12.5 M5 PO (12:38)
[2018-06-27] MEDS ORDERED: ROXICODONE30 MG PO (13:19)
[2018-06-27] MEDS ORDERED: DILAUDID 4MG TAB4 MG PO (13:19)
== END 2018-06-27 15:01 | disposition home or self-care (01) | DRG 682 ==
LOC: COL.ER 12:47 → MEDICAL 14:54
PROVIDERS: Family Medicine; Internal Medicine
PROC: 5A1D70Z Performance of Urinary Filtration, Intermittent, Less than 6 Hours Per Day (ICD-10-PCS; principal; 2018-06-25)
DX: I12.0 Hypertensive chronic kidney disease with stage 5 chronic kidney disease or end stage renal disease (principal); N18.6 End stage renal disease; E87.2 Acidosis; R18.8 Other ascites; E11.22 Type 2 diabetes mellitus with diabetic chronic kidney disease; Z99.2 Dependence on renal dialysis; K72.90 Hepatic failure, unspecified without coma; D63.1 Anemia in chronic kidney disease; Z51.5 Encounter for palliative care; R11.0 Nausea; N40.0 Benign prostatic hyperplasia without lower urinary tract symptoms; I73.9 Peripheral vascular disease, unspecified; Z89.432 Acquired absence of left foot; E11.42 Type 2 diabetes mellitus with diabetic polyneuropathy; E78.5 Hyperlipidemia, unspecified; Z88.6 Allergy status to analgesic agent; I95.3 Hypotension of hemodialysis; Z91.15 Patient's noncompliance with renal dialysis
CPT/HCPCS: J1650; J1815; J2405; J2550